=== PATIENT | male | born 1990 | race Caucasian/White ===

== ENCOUNTER 2017-12-12 19:19 | Inpatient (IN) | payer BC ==
[~2017-12-12] VITALS: Ht 177.8 cm; Wt 61.2 kg
[2017-12-12 19:27] VITALS: Ht 177.8 cm; Wt 61.2 kg
[2017-12-12 21:41] LABS: BASOPHIL % 0.2 % (0-2); PLATELET COUNT 216 x10^3mcL (130-400); RED CELL DISTRIBUTION WIDTH 13.7 % (11.5-14.5)
[2017-12-12 21:53] LABS: CALCIUM 8.3 mg/dL (8.5-10.1); CARBON DIOXIDE 27.5 mmol/L (21-32); CHLORIDE SERUM 100 mmol/L (98-107); CREATININE SERUM 0.9 mg/dL (0.7-1.3); GFR1 > 60 mL/min; GLUCOSE SERUM 108 mg/dL (74-106); POTASSIUM SERUM 3.9 mmol/L (3.5-5.1); SODIUM SERUM 134 mmol/L (136-145)
[2017-12-12 21:58] LABS: ALBUMIN 4.7 g/dL (3.4-5.0); ALKALINE PHOSPHATASE 45 U/L (46-116); ALT/SGPT 43 U/L (16-63); AST/SGOT 50 U/L (15-37); BILIRUBIN TOTAL 2.3 mg/dL (0.20-1.00); TOTAL PROTEIN, SERUM 7.2 g/dL (6.4-8.2)
[2017-12-12 22:00] LABS: CHOLESTEROL/HDL RATIO 2.1; MAGNESIUM 1.9 mg/dL (1.8-2.4); PHOSPHOROUS 3.7 mg/dL (2.5-4.9)
[2017-12-12 22:23] LABS: T3 TOTAL 0.99 ng/mL
[2017-12-12 22:26] LABS: FREE T4 1.08 ng/dL (0.76-1.46); FREE THYROXINE INDEX 2.9 ug/dL (1.4-4.5); T4(THYROXINE) 8.1 ug/dL (4.7-13.3)
[2017-12-12 22:58] VITALS: BP 128/70
[2017-12-13 04:41] LABS: microscopic required? NO
[2017-12-13 04:58] LABS: UA SPECIFIC GRAVITY <=1.005 (1.005-1.035); urine erythrocyte NEGATIVE (NEGATIVE)
[2017-12-13 05:06] LABS: AMPHETAMINE QUAL UR NONE DETECTED (NEG <=1000)
[2017-12-13 05:49] VITALS: BP 119/77
[2017-12-13 07:20] LABS: BASOPHIL % 0.5 % (0-2); PLATELET COUNT 180 x10^3mcL (130-400); RED CELL DISTRIBUTION WIDTH 13.6 % (11.5-14.5)
[2017-12-13 07:35] LABS: CALCIUM 8.4 mg/dL (8.5-10.1); CARBON DIOXIDE 28.4 mmol/L (21-32); CHLORIDE SERUM 103 mmol/L (98-107); CREATININE SERUM 0.8 mg/dL (0.7-1.3); GFR1 > 60 mL/min; GLUCOSE SERUM 92 mg/dL (74-106); MAGNESIUM 2.2 mg/dL (1.8-2.4); PHOSPHOROUS 3.4 mg/dL (2.5-4.9); POTASSIUM SERUM 3.8 mmol/L (3.5-5.1); SODIUM SERUM 139 mmol/L (136-145)
[2017-12-13 09:48] VITALS: BP 123/77
== END 2017-12-13 13:30 | disposition left against medical advice (07) | DRG 563 ==
LOC: ED 19:19 → DU 21:16
PROVIDERS: Emergency Medicine; Family Medicine
DX: S82.252A Displaced comminuted fracture of shaft of left tibia, initial encounter for closed fracture (principal); S82.452A Displaced comminuted fracture of shaft of left fibula, initial encounter for closed fracture; V29.9XXA Motorcycle rider (driver) (passenger) injured in unspecified traffic accident, initial encounter; Y93.89 Activity, other specified; Y92.89 Other specified places as the place of occurrence of the external cause; Y99.8 Other external cause status
CPT/HCPCS: 83880; 84439; J1644; J2270; J2405; J3010; J3490; J7030; Q0092